=== PATIENT | male | born 1935 | race Caucasian/White ===

== ENCOUNTER 2016-06-01 20:35 | Inpatient (IN) | payer MEDICARE, BC ==
[~2016-06-01] VITALS: Ht 170.2 cm; Wt 57.2 kg
[~2016-06-01 20:35] MED LIST: ACET500T68 PO; BRIM5DRO3 EACHEYE; BRIM5DRO3 OP; CALC-47 PO; CALC500T PO; CIPR500T94 PO; CLON1PAT2 TD; FENT1PAT17 TD; FOLI1TAB16 PO; GABA-585 PO; GABA300C8 PO; LEVO125T5 PO; LEVO50TA5 PO; LIDO700A4 TP; MIRT15TA PO; MUPI22OI TP; OMEG-33 PO; OMEG1CAP50 PO; OMEP40CA5 PO; OXYC10TA PO; POLY17PO5 PO; RAMI2.5C24 PO; TIZA4TAB8 PO; ZOLP5TAB5 PO
[2016-06-01] MEDS ORDERED: LORAZEPAM 1 MG TABLET. PO ONE (21:00)
[2016-06-01] MEDS ORDERED: HYDROMORPHONE PF 1 MG/ML DISP.SYRIN. IM ONE (21:00)
[2016-06-01] MEDS ORDERED: FENTANYL PF 100 MCG/2 ML VIAL. IV ONE (21:30)
[2016-06-01 22:07] LABS: BASO % 0 % (0-3); EOS # 0.4 x10^3/uL (0.0-0.7); EOS % 6 % (0-3); HEMATOCRIT 41.3 % (39.0-53.0); HEMOGLOBIN 13.5 g/dL (13.0-17.5); LYMPH # 1.6 x10^3/uL (1.0-4.8); LYMPH % 24 % (24-48); MEAN CORPUSCULAR HEMOGLOBIN 30 pg (25-35); MEAN CORPUSCULAR HGB CONC 33 g/dL (31-37); MEAN CORPUSCULAR VOLUME 93 fL (79-100); MONO # 0.5 x10^3/uL (0.0-1.1); MONO % 8 % (0-9); NEUT # 4.1 x10^3uL (1.8-7.7); NEUT % 61 % (31-73); PLATELET COUNT 220 x10^3/uL (140-400); RED BLOOD COUNT 4.44 x10^6/uL (4.30-5.70); RED CELL DISTRIBUTION WIDTH 15.2 % (11.5-14.5); WHITE BLOOD COUNT 6.7 x10^3/uL (4.0-11.0)
[2016-06-01 22:11] LABS: CALCIUM 9.8 mg/dL (8.5-10.1); CREATININE 1.5 mg/dL (0.7-1.3); GFR 44.8; POTASSIUM 4.4 mmol/L (3.5-5.1)
--- NOTE | 2016-06-01 22:20 | RAD ---
Examination: CT head and cervical spine without contrast. HISTORY History of fall from standing position, head and neck pain. COMPARISON CT head from 07/04/[address] cervical spine from 02/17/2013. TECHNIQUE Axial CT images of the head was performed without contrast with axial CT images of cervical spine was performed without contrast. Coronal sagittal reformats were performed. Exposure: One or more of the following dose reduction technique were utilized for this examination: 1. Automated exposure control. 2.Adjustment of MA and /or KV according to patient size. 3. Use of iterative reconstruction technique. Findings: There is no evidence of midline shift. Mild bilateral periventricular white matter hypodensities likely chronic small vessel ischemic disease. There is no acute intracranial bleed or extra-axial fluid collection identified. There is anterior cervical fusion hardware identified at C4, -T1 vertebral levels with anterior bone graft identified at this levels. Examination is very limited due to motion and due to streak artifact from hardware and due to spinal leads and wires. Grossly the C2 dens appears to protrude into the base of the brain which is similar to prior exam with somewhat downward sagging of the C1 vertebra, which is at the base of the C2 vertebra this is similar to prior exam. . On series 7 image #48 there is a lucent line identified in the region of the C2 posterior arch attachment to the facet bilaterally, this could be age indeterminate fractures. Acute fractures are not completely excluded as comparison to prior exam is limited as there was significant motion artifact on the prior exam. There is mild anterior listhesis of C3 on C4. Severe degenerative changes with bony fusion identified in the cervical spine from C3-T1 vertebral levels. Impression: 1. No acute intracranial findings. 2. Examination is very limited due to motion and due to streak artifact from hardware and due to spinal leads and wires. Grossly the C2 dens appears to protrude into the base of the brain which is similar to prior exam with somewhat downward sagging of the C1 vertebra, which isat the base of the C2 vertebra this is similar to prior exam. On series 7 image #48 there is a lucent line identified in the region of the C2 posterior arch attachment to the facet bilaterally, this could be age indeterminate fractures. Acute fractures are not completely excluded as comparison to prior exam is limited as there was significant motion artifact on the prior exam. Electronically signed by: Isrrael Vizcaino (Jun 01, 2016 22:18:42)
--- NOTE | 2016-06-02 00:40 | ED.ADGEN ---
Past History Past Medical History: Anxiety, Arthritis, Heart Disease, Hypertension, Other ( history of heart failure) Past Surgical History: Other Smoking: Non-smoker Alcohol Use: None Drug Use: None Adult General Chief Complaint Chief Complaint Right shoulder pain, neck pain, right hip pain [place] [facility] [facility] HPI Patient is a pleasant 81-year-old male returning from a [facility] when he was in the shower and the x-ray fell from standing position. He suffers from a history of extensive arthritis with prior surgeries to the neck hypertensive heart disease esophageal reflux disease with esophagitis glaucoma, chronic lower back pain, pneumonia, hypothyroidism generalized muscle weakness he is a limited historian secondary to hearing loss but he does recall falling from standing without loss of consciousness. He does have a history of chronic neck pain from his chronic surgeries and prior arthritis but says that the neck pain is little bit worse than normal. He denies any numbness and tingling only complains of right femur pain right shoulder pain after the fall. He denies any chest pain prior after the fall denies any abdominal pain denies any focal neurologic deficits headache comes thinking speaking or problems with vision changes. The history was obtained from EMS report. Noted on report was chronic bilateral knee pain or back pain. It did report a history of him hitting his head but he denied loss of consciousness to them he denied any back pain or neck pain. Review of Systems Review of Systems Constitutional: Denies fever or chills [] Eyes: Denies change in visual acuity, redness, or eye pain [] HENT: Denies nasal congestion or sore throat [] Respiratory: Denies cough or shortness of breath [] Cardiovascular: No additional information not addressed in HPI [] GI: Denies abdominal pain, nausea, vomiting, bloody stools or diarrhea [] : Denies dysuria or hematuria [] Musculoskeletal: Chronic shoulder back and neck pain. Integument: Denies rash or skin lesions [] Neurologic: Denies headache, focal weakness or sensory changes [] Endocrine: Denies polyuria or polydipsia [] Current Medications Current Medications Current Medications Medications (Trade) Dose Ordered Sig/Myah Start Time Stop Time Status Last Admin Dose Admin Fentanyl Citrate (Fentanyl 2ml Vial) 50 mcg 1X ONCE 06/01/16 21:30 06/01/16 21:36 DC 06/01/16 22:18 50 MCG Hydromorphone HCl (Dilaudid) 1 mg 1X ONCE 06/01/16 21:00 06/01/16 21:01 Cancel Lorazepam (Ativan) 1 mg 1X ONCE 06/01/16 21:00 06/01/16 21:01 Cancel Allergies Allergies Allergies Uncoded Allergies Type Severity Reaction Last Updated Verified MUSCLE RELAXANTS Allergy Intermediate MAKES HER VERY LIMP 01/29/14 Physical Exam Physical Exam Constitutional: Patient is well-nourished but is cachectic with pale-looking skin he is very debilitated with brace of his upper and lower extremities significantly lost of muscle tissue. HENT: Normocephalic, atraumatic, bilateral external ears normal, oropharynx moist, no oral exudates, nose normal. [] Eyes: PERRLA, EOMI, conjunctiva normal, no discharge. [] Neck: Fairly decreased range of motion with tenderness along the lateral aspect of the right neck. Noted well-healed scar without evidence of localized trauma. Cardiovascular:Heart rate regular rhythm, no murmur [] Lungs & Thorax: Bilateral breath sounds clear to auscultation [] Abdomen: Bowel sounds normal, soft, no tenderness, no masses, no pulsatile masses. [] Skin: Warm, dry, no erythema, no rash. [] Back: No tenderness, no CVA tenderness. [] Extremities: Negative tenderness and decreased range of motion of the lateral aspect of the proximal humerus on the right. Also marked tenderness to palpation along the distal right femur without any obvious signs of deformity. + 2 Reveal posterior peripheral pulses skin is warm dry and intact Neurologic: Alert and oriented X 3, normal motor function, normal sensory function, no focal deficits noted. [] Psychologic: Affect normal, judgement normal, mood normal. [] Current Patient Data Vital Signs Vital Signs Date Time Temp Pulse Resp B/P Pulse Ox O2 Delivery O2 Flow Rate FiO2 06/01/16 22:18 22 95 Nasal Cannula 4.0 06/01/16 20:43 67 Lab Results Laboratory Tests Test 06/01/16 21:45 White Blood Count 6.7x10^3/uL (4.0-11.0) Red Blood Count 4.44x10^6/uL (4.30-5.70) Hemoglobin 13.5g/dL (13.0-17.5) Hematocrit 41.3% (39.0-53.0) Mean Corpuscular Volume 93fL (79-100) Mean Corpuscular Hemoglobin 30pg (25-35) Mean Corpuscular Hemoglobin Concent 33g/dL (31-37) Red Cell Distribution Width 15.2% (11.5-14.5) H Platelet Count 220x10^3/uL (140-400) Neutrophils (%) (Auto) 61% (31-73) Lymphocytes (%) (Auto) 24% (24-48) Monocytes (%) (Auto) 8% (0-9) Eosinophils (%) (Auto) 6% (0-3) H Basophils (%) (Auto) 0% (0-3) Neutrophils # (Auto) 4.1x10^3uL (1.8-7.7) Lymphocytes # (Auto) 1.6x10^3/uL (1.0-4.8) Monocytes # (Auto) 0.5x10^3/uL (0.0-1.1) Eosinophils # (Auto) 0.4x10^3/uL (0.0-0.7) Basophils # (Auto) 0.0x10^3/uL (0.0-0.2) Sodium Level 142mmol/L (136-145) Potassium Level 4.4mmol/L (3.5-5.1) Chloride Level 103mmol/L (98-107) Carbon Dioxide Level 29mmol/L (21-32) Anion Gap 10 (6-14) Blood Urea Nitrogen 35mg/dL (8-26) H Creatinine 1.5mg/dL (0.7-1.3) H Estimated GFR (Cockcroft-Gault) 44.8 Glucose Level 110mg/dL (70-99) H Calcium Level 9.8mg/dL (8.5-10.1) I reviewed laboratory work which demonstrates hyperglycemia, elevated BUN/ creatinine which is likely from chronic dehydration. 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 There is an disruption of normal articular surfaces from the occiput to the C3 vertebral level with near complete erosions of the lateral masses of C2 which are extremely thin. Correlate clinically for stability of the cervical spine given basilar invagination and erosions. Followup neurosurgical consult can be considered. Electronically signed by: Isrrael Vizcaino (Jun 01, 2016 22:43:51) DICTATED AND SIGNED BY: ISRRAEL VIZCAINO MD DATE: 06/01/162217 CC: GINGER VALLADARES MD; WANDA CASTANO MD ~ Examination: CT head and cervical spine without contrast. HISTORY History of fall from standing position, head and neck pain. COMPARISON CT head from 07/04/[address] cervical spine from 02/17/2013. TECHNIQUE Axial CT images of the head was performed without contrast with axial CT images of cervical spine was performed without contrast. Coronal sagittal reformats were performed. Exposure: One or more of the following dose reduction technique were utilized for this examination: 1. Automated exposure control. 2.Adjustment of MA and /or KV according to patient size. 3. Use of iterative reconstruction technique. Findings: There is no evidence of midline shift. Mild bilateral periventricular white matter hypodensities likely chronic small vessel ischemic disease. There is no acute intracranial bleed or extra-axial fluid collection identified. There is anterior cervical fusion hardware identified at C4, -T1 vertebral levels with anterior bone graft identified at this levels. Examination is very limited due to motion and due to streak artifact from hardware and due to spinal leads and wires. Grossly the C2 dens appears to protrude into the base of the brain which is similar to prior exam with somewhat downward sagging of the C1 vertebra, which is at the base of the C2 vertebra this is similar to prior exam. . On series 7 image #48 there is a lucent line identified in the region of the C2 posterior arch attachment to the facet bilaterally, this could be age indeterminate fractures. Acute fractures are not completely excluded as comparison to prior exam is limited as there was significant motion artifact on the prior exam. There is mild anterior listhesis of C3 on C4. Severe degenerative changes with bony fusion identified in the cervical spine from C3-T1 vertebral levels. Impression: 1. No acute intracranial findings. 2. Examination is very limited due to motion and due to streak artifact from hardware and due to spinal leads and wires. Grossly the C2 dens appears to protrude into the base of the brain which is similar to prior exam with somewhat downward sagging of the C1 vertebra, which isat the base of the C2 vertebra this is similar to prior exam. On series 7 image #48 there is a lucent line identified in the region of the C2 posterior arch attachment to the facet bilaterally, this could be age indeterminate fractures. Acute fractures are not completely excluded as comparison to prior exam is limited as there was significant motion artifact on the prior exam. Electronically signed by: Isrrael Vizcaino (Jun 01, 2016 22:18:42) DICTATED AND SIGNED BY: ISRRAEL VIZCAINO MD DATE: 06/01/162217 CC: GINGER VALLADARES MD; WANDA CASTANO MD ~ ] The mother x-ray dated 06/01/2016 at 2122 and states no cold fracture or significant disc calcification to the Philipp structures within the leg itself but there is no obvious occult fracture. There does not seem to be any hip fracture noted. Shoulder film demonstrates severe arthritis reduction of joint spaces with no obvious fracture of the humerus or glenoid. Cardiac shadow on chest x-ray dated and timed same 06/01/2016 demonstrates hyperinflated lungs suggestive of obstructive lung disease there are spinal evidence of spinal fusion with hardware noted no evidence of widened mediastinum or focal infiltrate. Impressions: Fall from standing, right shoulder contusion, cervical neck strain, right femur contusion Course & Med Decision Making Course & Med Decision Making Pertinent Labs and Imaging studies reviewed. (See chart for details) [Patient with a fall from standing with severe arthritis to the right shoulder with no obvious signs of fracture there is no obvious signs of fracture in the proximal femur or distal femur on the right which were most the pain is being complained of. Patient also complaining of a change in neck pain although his neurologic exam is not changed from baseline there is severe basilar invagination C2 similar to prior exams according to the radiologist there is disruption of the normal articular surfaces from the occiput to C3 vertebral level with near complete erosion of the lateral masses of C2 which are extremely thin the concern is according to the radiologist with this finding any cow lateral motion to the neck may result in significant paralysis lower extremities and upper extremities. Given the fact that this patient has changed pain pattern in his neck I will need to have a thyroid by a neurosurgeon before sending him back to the nursing facility. At this point we are arranging for transportation and evaluation by a neurosurgeon which is not available at this facility.] A she was initially accepted approximately 1225 by internal medicine at [facility] unfortunate proximally 1250 we were notified that patient will not be able to be transferred there as there is no bed space available in the entire hospital. We are attempting to transfer patient at for neurosurgical evaluation. was not available to accept patient as they are also without bed space the decision was made to keep patient here in a collar, treating his pain. I discussed with our hospitalist Dr. Wood to proximally 1 AM he agreed with disposition and treatment plan and transfer to [facility] for neurosurgical evaluation in the morning concerning the fact that this is not an emergent issue. Patient was also instructed the plan and was okay with admission to the hospital here for discharge and transfer the morning. Final Impression Final Impression [Cervical neck strain with pain, severe right shoulder arthritis, femur contusion fall from standing. Dehydration elevated BUN/creatinine] Problems: Dragon Disclaimer Dragon Disclaimer This electronic medical record was generated, in whole or in part, using a voice recognition dictation system. GINGER VALLADARES MD Jun 02, 2016 00:40
[2016-06-02 02:15] VITALS: BP 190/95
[2016-06-02 05:36] VITALS: BP 146/84
[2016-06-02] MEDS ORDERED: AMLO2.5T PO (06:00)
[2016-06-02] MEDS ORDERED: ACET500T68 PO (06:00)
[2016-06-02] MEDS ORDERED: DEXT15DR5 OU (06:01)
[2016-06-02] MEDS ORDERED: ASPI81TA2 PO (06:02)
[2016-06-02] MEDS ORDERED: HYDR-2666 PO (06:03)
[2016-06-02] MEDS ORDERED: LEVO50TA5 PO (06:04)
[2016-06-02] MEDS ORDERED: MAGN2400 PO (06:08)
[2016-06-02] MEDS ORDERED: MULT1TAB52 PO (06:09)
[2016-06-02] MEDS ORDERED: PANT40TA5 PO (06:10)
[2016-06-02] MEDS ORDERED: TRAZ50TA15 PO (06:13)
[2016-06-02] MEDS ORDERED: CHOL10003 PO (06:15)
[2016-06-02] MEDS ORDERED: VITA1TAB3 PO (06:17)
--- NOTE | 2016-06-02 07:36 | RAD ---
Right femur radiographs History: Fall from standing, pain. Comparison: None. Findings: AP and lateral views of right femur, 4 images. No acute fracture or dislocation is identified. Advanced right hip degeneration is seen. Chondrocalcinosis can be seen involving the right hip and the right knee. Degenerative changes are also seen in the right knee. Arterial calcification is present. Impression: No acute osseous traumatic injury identified.
--- NOTE | 2016-06-02 07:40 | RAD ---
Exam: AP portable chest. History: Fall from standing. Comparison: 11/26/2015. Findings: The heart and mediastinal structures are within normal limits for size. Lungs are without infiltrate. No pneumothorax or pleural effusion is appreciated. Stimulator hardware is seen involving the left hemithorax. Cervicothoracic junction demonstrates spinal fusion hardware. Impression: 1. No acute cardiopulmonary process.
[2016-06-02] MEDS: LIDOCAINE (700MG/PATCH) PATCH. TP SCH (08:13)
--- NOTE | 2016-06-02 08:13 | RAD ---
Right shoulder radiographs History: Fall, pain. Comparison: 11/28/2015. Findings: AP internal rotation and scapular Y-view of the right shoulder. There is a difference in appearance of the right shoulder relative to the previous study. The glenoid is less evident as well as the coracoid process. There is also osseous fragmentation of the acromion on. There may be lucency involving the residual glenoid as well. There is superior migration of the humeral head. Multiple calcific densities are seen about the right shoulder. It is uncertain how much of the abnormality is due to a chronic process with heterotopic calcification and how much is due to acute trauma. Impression: Abnormal appearance to the right shoulder. There may be both chronic process present as well as acute traumatic injury. CT imaging of the right shoulder may be helpful for better characterization.
[2016-06-02] MEDS: GABAPENTIN 300 MG CAPSULE. PO SCH ×4 (08:14→20:00)
[2016-06-02] MEDS: HYDROCODONE/APAP 5/325MG TABLET. PO SCH ×2 (08:14→20:00)
[2016-06-02 11:35] VITALS: BP 182/80
[2016-06-02] MEDS: ACETAMINOPHEN 500 MG TABLET PO PRN (14:28)
[2016-06-02] MEDS ORDERED: POLYVINYL ALCOHOL 1.4% OPHTH SOLUTION 15ML BOTTLE. OU PRN ×2 (14:30→17:58)
[2016-06-02] MEDS ORDERED: MAGNESIUM HYDROXIDE 2,400 MG/30 ML ORAL.SUSP. PO PRN (14:30)
[2016-06-02 15:53] VITALS: BP 164/86
--- NOTE | 2016-06-02 15:57 | HP ---
ADMIT DATE: 06/02/2016 HISTORY OF PRESENT ILLNESS: The patient is an 81-year-old male patient, a resident at [facility] and [facility] who apparently was in shower and fell from a standing position. He apparently has had extensive history of arthritis and prior surgeries to the neck. He recalls that he fell from standing without loss of consciousness. He does have a history of neck pain from his chronic surgeries and prior arthritis but says that the neck pain is little bit worse than normal. He denied any tingling or numbness and only complaint of pain in his right shoulder and right thigh after the fall. He denied any chest pain prior or after the fall. Denies any abdominal pain. Denies any focal neurological deficit. He denied any headache or vision change. He apparently is known to have chronic bilateral knee pain and back pain. In fact, when he arrived to the Emergency Room, he denied any back pain or neck pain. He was extensively investigated in the Emergency Room. His lab work is mostly unremarkable except for impaired kidney function. He has had extensive imaging studies and was admitted for pain management together with treatment of dehydration. PAST MEDICAL HISTORY: Significant for anxiety, severe generalized arthritis and hypertension. Unfortunately, the patient is a very limited historian. I am not sure how much he said that he has nerve stimulator in his neck, but he not really gave me any other surgical procedure. He apparently is known to have cerebral, has had depression, anxiety, hypertension, chronic narcotic use, recurrent falls. FAMILY HISTORY: Unremarkable. SOCIAL HISTORY: He is a resident at [facility] in [place]. ALLERGIES: HE IS APPARENTLY ALLERGIC TO CYCLOBENZAPRINE. MEDICATIONS: He is currently on the following medications: Tylenol 1000 mg p.o. b.i.d., acetaminophen 500 mg every 6 hours, amlodipine 2.5 mg once a day, aspirin 81 mg once a day, brimonidine tartrate for Alphagan one drop to both eyes twice a day, calcium carbonate and vitamin D at 1000 units once a day, clonidine-TTS 0.2 mg weekly, artificial tears 1 drop to both eyes every 4 hours, fentanyl 50 mcg per hour q. 72 hours, he is on gabapentin 300 mg q.i.d., hydrocodone/APAP one tablet every 12 hours, levothyroxine sodium 50 mcg once a day, Lidoderm patch 700 mcg topically on for 12 hours and off for 12 hours, magnesium hydroxide for milk of magnesia 30 mL once a day, multivitamin 1 tablet once a day, omega-3 fatty acid 1000 mg once a day, Protonix 40 mg once a day, polyethylene glycol 17 grams once a day, trazodone 50 mg at bedtime and vitamin B complex 1 tablet once a day. PHYSICAL EXAMINATION: GENERAL: On arrival to the Emergency Room, he looked pale, cachectic, but no jaundice, cyanosis. No lymphadenopathy, no thyromegaly. No jugular venous distention. No limb edema. VITAL SIGNS: His heart rate was 67, blood pressure was 161/96, temperature was 98.9, respiratory rate was 18 and oxygen saturation was 93% on 2 liters of oxygen. HEAD, EYES, EARS, NOSE AND THROAT: Showed normocephalic, atraumatic. The patient has a soft collar. NECK: Supple, with no lymphadenopathy, no thyromegaly. No jugular venous distention. No audible bruit. He has soft cervical collar in place. HEART: Showed normal first and second heart sounds with no gallop, rub or murmur. CHEST: Clear to auscultation. No crepitation or rhonchi. ABDOMEN: Distended, soft, nontender. There is no guarding or rigidity. No organomegaly. All hernial orifices intact. Bowel sounds normal. NEUROLOGIC: He was awake, alert. All his cranial nerves are intact. EXTREMITIES: He moves all his extremities without difficulty, although he said that he is mostly chair bound. LABORATORY DATA: While in the Emergency Room, he has had lab work done, which showed a white cell count of 6700, hemoglobin 13.5, hematocrit 41, MCV 93 and platelet count 121,000. His chemistry showed a serum sodium 142, potassium 4.4, chloride 103, bicarbonate 29, anion gap of 10, BUN 35, creatinine 1.5, estimated GFR was 44 mL per minute, his glucose 110, calcium was 9.8. He has had extensive imaging studies including his right femur which showed that he has no acute fracture or dislocation is identified, advanced right hip degeneration is seen. He has also chondrocalcinosis, can be seen involving the right hip and the right knee. Degenerative changes are also seen in the right knee. Arterial calcification is present. His shoulder showed abnormal appearance of the right shoulder. Then, he reported chronic process present as well as acute traumatic injury. There is a difference in appearance of the right shoulder related to the previous study. The glenoid is less evident as well as the coracoid process. There is also osseous fragmentation of the acromion. There may be lucency involving with residual glenoid as well. There is superior migration of the humeral head. Multiple calcific densities are seen about the right shoulder. It is uncertain how much is abnormality due to chronic process with heterotopic calcification and how much is due to acute trauma. CT scan of the head and cervical spine showed that there is severe basilar invagination of C2 similar to prior exam. There is a disruption of normal articular surface on the occiput to the C3 vertebral level with near complete erosion of the lateral masses of C2, which are extremely thin. There is no acute intracranial finding. Examination of the cervical spine showed that it is very limited due to motion and due to streak artifacts from the hardware and due to spinal leads and wires. Grossly the C2 dens appears to protrude into the base of the brain, which is similar to prior exam with somewhat downward sagging of the C1 vertebra which is at the base of the C2 vertebra that is similar to prior exam. On series 7 images, #48, there is a lucent line identified in the region of C2 posterior arch attachment to the facets bilaterally. These could be age indeterminate fractures. Acute fractures are not completely excluded as comparison to prior exam is limited as there was significant motion artifact on the prior exam. ASSESSMENT AND PLAN: The patient was admitted and we started him on all his pain medication. My plan is to consult Dr. Mcgregor and ask him to look into his CT scan of the cervical spine. I will also contact the [facility] in [place] to get some more information about the patient and decide on management as he might require transfer to [facility] for further evaluation by the neurosurgical team. ADRIENNE COCHRAN MD DR: SEPIDEH/rahel JOB#: [id number] / [id number]
[2016-06-02 19:45] VITALS: BP 149/79
[2016-06-02] MEDS: ACETAMINOPHEN 500 MG TABLET PO SCH (20:00)
[2016-06-02] MEDS: traZODone 50 MG TABLET. PO SCH (20:01)
[2016-06-02] MEDS: BRIMONIDINE 0.2% OPHTH SOLUTION 5ML BOTTLE. OU SCH (20:01)
[2016-06-02] MEDS: POLYETHYLENE GLYCOL 3350 17 GM PACKET. PO SCH (20:21)
[2016-06-03 03:00] VITALS: BP 113/77
[2016-06-03 06:27] VITALS: BP 118/74
[2016-06-03] MEDS ORDERED: LEVOTHYROXINE 50 MCG TABLET PO SCH (07:30)
[2016-06-03] MEDS: VITAMIN B COMPLEX CAPSULE. PO SCH (08:59)
[2016-06-03] MEDS: ASPIRIN 81 MG TAB.CHEW PO SCH (08:59)
[2016-06-03] MEDS: FOLIC ACID 1 MG TABLET PO SCH (08:59)
[2016-06-03] MEDS: OMEGA-3 FATTY ACIDS/FISH OIL 1,000 MG CAPSULE. PO SCH (08:59)
[2016-06-03] MEDS: BRIMONIDINE 0.2% OPHTH SOLUTION 5ML BOTTLE. OU SCH ×2 (08:59→20:50)
[2016-06-03] MEDS: POLYETHYLENE GLYCOL 3350 17 GM PACKET. PO SCH (09:00)
[2016-06-03] MEDS: HYDROCODONE/APAP 5/325MG TABLET. PO SCH ×2 (09:00→20:53)
[2016-06-03] MEDS: GABAPENTIN 300 MG CAPSULE. PO SCH ×4 (09:00→20:50)
[2016-06-03] MEDS: ACETAMINOPHEN 500 MG TABLET PO SCH ×2 (09:01→20:50)
[2016-06-03] MEDS: AMLODIPINE BESYLATE 2.5 MG TABLET PO SCH (09:01)
[2016-06-03] MEDS: LIDOCAINE (700MG/PATCH) PATCH. TP SCH (09:01)
[2016-06-03] MEDS: CHOLECALCIFEROL (VITAMIN D3) 400 UNIT TABLET PO SCH (09:01)
[2016-06-03] MEDS: PANTOPRAZOLE 40 MG TABLET. PO SCH (09:01)
[2016-06-03] MEDS: CALCIUM CARB/VIT D3 500/200 TABLET PO SCH (09:02)
[2016-06-03] MEDS: MULTIVITAMIN with MINERAL TABLET. PO SCH (09:03)
[2016-06-03 15:10] VITALS: BP 129/81
[2016-06-03 16:21] LABS: HEMATOCRIT 42.2 % (39.0-53.0); RED BLOOD COUNT 4.51 x10^6/uL (4.30-5.70); RED CELL DISTRIBUTION WIDTH 15.1 % (11.5-14.5); WHITE BLOOD COUNT 10.4 x10^3/uL (4.0-11.0)
[2016-06-03 16:34] LABS: ALBUMIN 3.7 g/dL (3.4-5.0); CALCIUM 9.9 mg/dL (8.5-10.1); CREATININE 1.5 mg/dL (0.7-1.3); GFR 44.8; POTASSIUM 4.2 mmol/L (3.5-5.1); TOTAL BILIRUBIN 0.7 mg/dL (0.2-1.0); TOTAL PROTEIN 7.4 g/dL (6.4-8.2)
[2016-06-03] MEDS: ACETAMINOPHEN 500 MG TABLET PO PRN (17:34)
[2016-06-03 19:00] VITALS: BP 132/74
[2016-06-03] MEDS: traZODone 50 MG TABLET. PO SCH (20:50)
[2016-06-04] MEDS: HYDROCODONE/APAP 5/325MG TABLET. PO SCH ×4 (03:00→20:14)
[2016-06-04 04:22] VITALS: BP 130/72
[2016-06-04] MEDS: LEVOTHYROXINE 50 MCG TABLET PO SCH (05:35)
[2016-06-04] MEDS: POLYETHYLENE GLYCOL 3350 17 GM PACKET. PO SCH (08:37)
[2016-06-04] MEDS: LIDOCAINE (700MG/PATCH) PATCH. TP SCH (08:38)
[2016-06-04] MEDS: AMLODIPINE BESYLATE 2.5 MG TABLET PO SCH (08:38)
[2016-06-04] MEDS: ACETAMINOPHEN 500 MG TABLET PO SCH ×2 (08:39→20:14)
[2016-06-04] MEDS: CHOLECALCIFEROL (VITAMIN D3) 400 UNIT TABLET PO SCH (08:39)
[2016-06-04] MEDS: BRIMONIDINE 0.2% OPHTH SOLUTION 5ML BOTTLE. OU SCH ×2 (08:39→20:14)
[2016-06-04] MEDS: VITAMIN B COMPLEX CAPSULE. PO SCH (08:39)
[2016-06-04] MEDS: OMEGA-3 FATTY ACIDS/FISH OIL 1,000 MG CAPSULE. PO SCH (08:39)
[2016-06-04] MEDS: MULTIVITAMIN with MINERAL TABLET. PO SCH (08:39)
[2016-06-04] MEDS: FOLIC ACID 1 MG TABLET PO SCH (08:39)
[2016-06-04] MEDS: CALCIUM CARB/VIT D3 500/200 TABLET PO SCH (08:39)
[2016-06-04] MEDS: ASPIRIN 81 MG TAB.CHEW PO SCH (08:39)
[2016-06-04] MEDS: PANTOPRAZOLE 40 MG TABLET. PO SCH (08:39)
[2016-06-04] MEDS: GABAPENTIN 300 MG CAPSULE. PO SCH ×4 (08:39→20:14)
--- NOTE | 2016-06-04 10:39 | ACF ---
Admission Criteria Forms MUSCULOSKELETAL DISEASE [facility] Clinical Indications for Admission to Inpatient Care (Place 'X' for any and all applicable criteria): Hospital admission is needed for appropriate care of the patient because of 1 or more of the following: [ ]I. Fracture, dislocation, or other musculoskeletal injury requiring inpatient care(medical) as indicated by 1 or more of the following(4)(5)(6)(7) [ ]a) Vertebral fracture requiring observation for instability or neurologic compromise (8) [ ]b) Compartment syndrome (proven or cannot be ruled out during observation level of care) (9) [ ]c) Limb-threatening injury [ ]d) Major injury requiring inpatient stabilization such as traction initiation or external fixation before internal fixation or closure of complex or open fracture [ ]e) Major injury requiring inpatient treatment after emergency or observation level care (as appropriate) [ ]f) Severe pain requiring acute inpatient management [ ]g) Injury with suspicion of abuse or neglect (eg., child, dependent elderly) [ ]II. Newly diagnosed or suspected bone, joint, or orthopedic device infection (e.g., osteomyelitis, septic arthritis) needing 1 or more of the following(1)(2)(3) [ ]a) IV antibiotics that cannot be initiated in other than inpatient setting (e.g., patient too unstable or home infusion not available) [ ]b) Device removal or replacement [ ]c) Bone or soft tissue debridement [ ]d) Joint drainage (drain placement or repetitive aspirations) [ ]III. Severe rheumatologic disease (e.g., systemic lupus erythematosus, rheumatoid arthritis) with complications or comorbidities (Also use Optimal Recovery Care Criteria or General Recovery Criteria as appropriate on the basis of predominant condition), including 1 or more of the following( 10)(11)(12)(13) [ ]a) Severe infection (e.g., SADDLE MAKER infection, sepsis) (14) [ ]b) Respiratory complications, including 1 or more of the following : [ ]i) Pleural effusion with respiratory compromise [ ]ii) Pulmonary hypertension with congestive failure [ ]iii) Respiratory failure [ ]iv) Pulmonary hemorrhage (15) [ ]c) Hematologic disease, including 1 or more of the following: [ ]i) Coagulopathy with bleeding [ ]ii) Thrombosis with hypercoagulable state [ ]iii) Thrombotic thrombocytopenic purpura [ ]d) Cerebritis with seizures, psychosis, or other severe abnormalities [ ]e) Vertebral destruction with monitoring needed for cervical myelopathy& possible respiratory compromise [ ]f) Exacerbation that requires inpatient treatment (e.g., intravenous immunosuppression) (16) [ ]g) Acute renal failure [ ]h) Cerebritis with seizures, psychosis, Altered mental status, or other neurologic abnormalities [ ]i) Pericardial effusion with tamponade [ ]j) Vertebral destruction, with monitoring needed for cervical myelopathy and possible respiratory compromise [ ]IV. Severe vasculitis with complications or comorbidities (Also use Optimal Recovery Care Criteria General Recovery Criteria as appropriate on the basis of predominant condition), including 1 or more of the following(11)(12)(17)(18)(19)(20) [ ]a) Exacerbation that requires inpatient treatment (e.g., intravenous immunosuppression) (19)(21) [ ]b) Pulmonary hemorrhage (15) [ ]c) SADDLE MAKER vasculitis with seizures, psychosis, Altered mental status that is severe or persistent, or other severe abnormalities (22) [ ]d) Cerebral infarction [ ]e) Gastrointestinal ischemia [ ]f) Gangrene or threatened amputation [ ]g) Renal failure (16) [ ]h) Other significant complications of vasculitis ( eg., tissue or organ ischemia, organ dysfunction ) [ ]V. Severe myopathy as indicated by 1 or more of the following (28)(29) [ ]a) New onset of airway compromise or inability to swallow [ ]b) Respiratory deterioration with observation needed for impending respiratory failure [ ]c) Exacerbation that requires inpatient treatment (e.g., intravenous immunosuppression) [ ]. Severe crystal gout (arthropathy) indicated by 1 or more of the following (23)(24) [ ]a) Severe pain requiring acute inpatient management [ ]b) Exacerbation that requires inpatient treatment (e.g., intravenous treatment) [ ]VII.Rhabdomyolysis and 1 or more of the following (25)(26)(27) [ ]a) Acute renal failure [ ]b) Need for intravenous hydration after emergency or observation level care (as appropriate) [ ]c) Inability to maintain oral hydration [ ]d) Change in mental status [ ]e) Electrolyte abnormality that remains after emergency or observation level care (as appropriate) [ ]VIII Post amputation complication, as indicated by ANY ONE of the following [ ]a) Infection [ ]b) Dehiscence [ ]c) Myodesis failure [X]IX. Severe pain requiring acute inpatient management due to musculoskeletal condition [ ]X. Musculoskeletal Disease and ALL of the following: [ ]a) Symptom or finding for which emergency and observation care have failed or are not considered appropriate (Use General Criteria: Observation Care as appropriate) [ ]b) Presence of ANY ONE of the following [ ]i) A General Admission Criteria [ ]ii) A Pediatric General Admission Criteria The original [facility] content created by [facility] [employer] has been revised. The portions of the content which have been revised are identified through the use of italic text or in bold, and [facility] has neither reviewed nor approved the modified material. All other unmodified content is copyright [facility] [employer]. Please see references footnoted in the original [facility] [employer] edition 2016 Admission Criteria Met?: Yes ACOSTA VOGT Jun 04, 2016 10:38
--- NOTE | 2016-06-04 12:00 | RAD ---
CT study of the lumbar spine without contrast History: Fall and severe lower back pain. Technique: Noncontrast helical CT scanning of the lumbar spine was performed. Multiplanar 2-D reconstructions were generated. PQRS Compliance Statement: One or more of the following individualized dose reduction techniques were utilized for this examination: 1. Automated exposure control 2. Adjustment of the mA and/or kV according to patient size 3. Use of iterative reconstruction technique Findings: Levoscoliosis of the lumbar spine is seen. No compression fracture or discitis or osteolytic process is seen. No spondylolysis is seen. The transverse processes are intact. No fracture of the sacrum is evident. No diastases of either SI joint is seen. Mild degenerative osteoarthritis of both SI joints is seen. A defect of the posterior medial aspect of the left iliac bone is seen consistent with a donor site. At T12-L1, no focal disc protrusion or spinal canal stenosis or neural foraminal narrowing is seen. At L1-L2, no focal disc protrusion or spinal canal stenosis is seen. There is moderate narrowing of the neural foramina bilaterally. At L2-L3, severe degenerative disc space narrowing and moderate degenerative endplate spurring and diffuse disc bulging is seen. Degenerative facet arthropathy and ligamentum flavum hypertrophy is seen. These findings combine to form a mild spinal canal stenosis. There is moderate neural foraminal narrowing bilaterally. At L3-L4, severe degenerative disc space narrowing and moderate degenerative endplate spurring and diffuse disc bulging is seen. Minimal grade 1 anterolisthesis is seen. Moderate facet arthropathy and ligamentum flavum hypertrophy is seen more prominent on the right side. These findings combine to form a moderate spinal canal stenosis worse on the right side. There is moderate narrowing of the neural foramen bilaterally. At L4-5, severe degenerative disc space narrowing and moderate degenerative endplate spurring and diffuse disc bulging is seen. Minimal grade 1 anterolisthesis is evident. Moderate degenerative facet arthropathy and ligamentum flavum hypertrophy is seen. These findings combine to form a mild to moderate spinal canal stenosis. There is moderate narrowing of the neural foraminal bilaterally. At L5-S1, severe degenerative disc space narrowing and moderate degenerative endplate spurring and diffuse disc bulging is seen. Moderate degenerative facet arthropathy and ligamentum flavum hypertrophy is seen. These findings combine to form a mild spinal canal stenosis. There is narrowing of the upper right lateral recess due to facet spurring and endplate spurring which could impinge the descending right S1 nerve root. There is moderate narrowing of the neural foramina bilaterally. IMPRESSION: Levoscoliosis and secondary degenerative lumbar spondylosis resulting in multilevel spinal canal stenosis and significant neural foraminal narrowing as discussed above. See discussion above for each level. No acute fracture is evident. Nonobstructing stones of the lower pole of the right kidney are seen. Right renal cyst is seen. The left kidney is surgically absent. Small residual soft tissue nodule is seen within the left renal surgical bed measuring 12 mm. Moderate urinary bladder distention.
[2016-06-04 14:18] VITALS: BP 135/73
[2016-06-04 19:38] VITALS: BP 137/72
[2016-06-04] MEDS: traZODone 50 MG TABLET. PO SCH (20:14)
[2016-06-05] MEDS: HYDROCODONE/APAP 5/325MG TABLET. PO SCH ×2 (02:52→08:16)
[2016-06-05] MEDS: LEVOTHYROXINE 50 MCG TABLET PO SCH (05:36)
[2016-06-05 06:15] VITALS: BP 117/74
[2016-06-05] MEDS: CALCIUM CARB/VIT D3 500/200 TABLET PO SCH (08:15)
[2016-06-05] MEDS: VITAMIN B COMPLEX CAPSULE. PO SCH (08:15)
[2016-06-05] MEDS: GABAPENTIN 300 MG CAPSULE. PO SCH (08:15)
[2016-06-05] MEDS: ACETAMINOPHEN 500 MG TABLET PO SCH (08:15)
[2016-06-05] MEDS: CHOLECALCIFEROL (VITAMIN D3) 400 UNIT TABLET PO SCH (08:15)
[2016-06-05] MEDS: ASPIRIN 81 MG TAB.CHEW PO SCH (08:16)
[2016-06-05] MEDS: PANTOPRAZOLE 40 MG TABLET. PO SCH (08:16)
[2016-06-05] MEDS: FOLIC ACID 1 MG TABLET PO SCH (08:16)
[2016-06-05] MEDS: MULTIVITAMIN with MINERAL TABLET. PO SCH (08:16)
[2016-06-05] MEDS: OMEGA-3 FATTY ACIDS/FISH OIL 1,000 MG CAPSULE. PO SCH (08:16)
[2016-06-05] MEDS: POLYETHYLENE GLYCOL 3350 17 GM PACKET. PO SCH (08:17)
[2016-06-05 08:18] VITALS: BP 117/74
[2016-06-05] MEDS: LIDOCAINE (700MG/PATCH) PATCH. TP SCH (08:18)
[2016-06-05] MEDS: BRIMONIDINE 0.2% OPHTH SOLUTION 5ML BOTTLE. OU SCH (08:18)
[2016-06-05] MEDS: AMLODIPINE BESYLATE 2.5 MG TABLET PO SCH (08:18)
[2016-06-05] MEDS ORDERED: FENTANYL 50MCG/HR PATCH. TD SCH (09:00)
--- NOTE | 2016-06-05 19:55 | DS ---
DATE OF DISCHARGE: 06/05/2016 DISCHARGE DIAGNOSES: 1. Status post fall without fracture. 2. Severe osteoarthritis. 3. Back pain. 4. Pain management. 5. Deep venous thrombosis prophylaxis. 6. Chronic kidney disease, stage 3. 7. Chronic respiratory failure, oxygen requiring. HOSPITAL COURSE: An 81-year-old male who felt at his shelter from a standing position. He has severe arthritis and had a history of prior surgeries in his neck and was unclear whether he had sustained a fracture of his neck or not. Dr. Wood, client experience consultant with Dr. Mcgregor, his neurosurgeon who reviewed the films and did not feel that these were new findings. His pain was aggressively managed well in the hospital. On the day of discharge, on 06/05/2016, it was deemed that he was ready to be discharged and will be discharged back to his nursing facility on custodial. PHYSICAL EXAMINATION: DISCHARGE VITAL SIGNS: Blood pressure 117/74, respirations 20, pulse 72, temperature 98 and pulse ox 93% on 2 liters. GENERAL: The patient was sitting up in bed. His color is decent. He is alert and oriented. HEENT: His tongue was moist. NECK: Supple. LUNGS: Clear. CARDIOVASCULAR: Regular rhythm and rate. ABDOMEN: Soft, nontender. EXTREMITIES: Without edema. He has musculoskeletal changes consistent with post polio. PLAN: Discharge back on custodial, medications were reconciled. DIOMEDES MARSHALL DO DR: BRYAN/rahel JOB#: [id number] / [id number]
[2016-06-09] MEDS ORDERED: CLONIDINE TTS-2 PATCH TD SCH (09:00)
== END 2016-06-05 10:51 | disposition home or self-care (01) | DRG 552 ==
LOC: ER 20:35 → 1 SOUTH 06-02 01:16
PROVIDERS: ADMIT Internal Medicine; ATTEND Internal Medicine
DX: M54.2 Cervicalgia (principal); I13.0 Hypertensive heart and chronic kidney disease with heart failure and stage 1 through stage 4 chronic kidney disease, or unspecified chronic kidney disease; J96.10 Chronic respiratory failure, unspecified whether with hypoxia or hypercapnia; R64 Cachexia; Z68.1 Body mass index [BMI] 19.9 or less, adult; E86.0 Dehydration; E03.9 Hypothyroidism, unspecified; I50.9 Heart failure, unspecified; H91.90 Unspecified hearing loss, unspecified ear; S80.10XA Contusion of unspecified lower leg, initial encounter; K21.9 Gastro-esophageal reflux disease without esophagitis; M19.90 Unspecified osteoarthritis, unspecified site; M25.551 Pain in right hip; N18.3 Chronic kidney disease, stage 3 (moderate); W18.30XA Fall on same level, unspecified, initial encounter; H40.9 Unspecified glaucoma; F32.9 Major depressive disorder, single episode, unspecified; F41.9 Anxiety disorder, unspecified; G89.29 Other chronic pain; M62.81 Muscle weakness (generalized); R29.6 Repeated falls; M25.511 Pain in right shoulder; M54.5 Low back pain; Y93.89 Activity, other specified; Y92.89 Other specified places as the place of occurrence of the external cause; Y99.8 Other external cause status; Z87.01 Personal history of pneumonia (recurrent); Z88.8 Allergy status to other drugs, medicaments and biological substances; Z79.891 Long term (current) use of opiate analgesic
CPT/HCPCS: 36415; 70450; 71010; 72125; 72131; 73030; 73552; 80048; 80053; 82550; 85027; 87641; 96374; J3010; 99285-25